=== PATIENT | male | born 1970 | race Caucasian/White ===

== ENCOUNTER 2023-02-17 13:28 | Outpatient (OUT) | payer OTHER, SELFPAY ==
--- NOTE | 2023-02-17 13:40 | ECG_ITS ---
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
== END 2023-02-17 13:29 ==
LOC: PST 13:29
DX: Z01.810 Encounter for preprocedural cardiovascular examination (principal); K40.90 Unilateral inguinal hernia, without obstruction or gangrene, not specified as recurrent
CPT/HCPCS: 93005

== ENCOUNTER 2023-04-19 09:40 | Outpatient (OUT) | payer OTHER, SELFPAY ==
--- NOTE | 2023-04-19 10:27 | PM.PRESUREVA ---
History of Present Illness History of Present Illness Chief complaint: right inguinal hernia Narrative: Patient presents for preadmission testing. The patient reports a right-sided hernia which is more painful when he eats or lifts weights. The patient was originally scheduled for this procedure in February of this year, but he had an abnormal EKG with a history of drug and alcohol abuse and shortness of breath. He states he is not currently using any drugs or alcohol and he has not had any shortness of breath. He has been cleared by cardioloogy. The patient has a documented history of low pulse ox, but denies any lung issues. Review of Systems ROS Narrative REVIEW OF SYSTEMS: Negative except as stated in HPI, ten or more systems reviewed. Constitutional: No fever , chills, weakness ENT: No sore throat or epistaxis Cardiovascular: No edema, chest pain, palpitations, or activity intolerance Respiratory: No shortness of breath, cough, or wheezing Musculoskeletal: No joint pain or swelling Genitourinary: No dysuria or hematuria Neurological: No numbness, tingling, weakness, or headache Psychiatric: No mood changes PFSH PFS Medical History (Updated 04/19/23 @ 10:25 by Cindy Chase NP) Family History (Updated 02/17/23 @ 16:35 by Radha Montemayor) Other Family history of cancer Heart disease Social History (Updated 04/19/23 @ 10:02 by Cindy Chase NP) Within the past year, how often did you have a drink containing alcohol: never Score interpretation: A score less than 4 is consistent with normal alcohol consumption. Smoking status: Never smoker Do you use any of these nicotine containing products: smokeless tobacco Non-prescribed substance use: denies use Highest level of school completed/degree received: high school graduate Meds Home Medications and Allergies Home Medications Medication Instructions Recorded Confirmed Type dapsone 100 mg tablet 100 mg PO BID 02/17/23 04/19/23 History Allergies Allergy/AdvReac Type Severity Reaction Status Date / Time gluten Allergy Severe Redness of Verified 04/19/23 10:01 Skin Exam Narrative Exam Narrative: Constitutional: Awake, alert, comfortable, well-appearing, nontoxic, interactive, vital signs as charted Head: Normocephalic, atraumatic Neck: Supple, normal appearance, normal range of motion, no meningeal signs, no lymphadenopathy Respiratory: No respiratory distress, breath sounds clear Cardiovascular: Regular rate and rhythm, strong and regular heart tones Abdomen: Tender right inguinal hernia, normal bowel sounds, soft Musculoskeletal: Normal gait, no swelling or edema Skin: No rashes or induration, no lesions, only visible skin inspected Neuro: No neurological deficits, normal sensation Psychiatric: Oriented ?3, Flat affect Assessment and Plan Assessment and Plan (1) Inguinal hernia: Plan Robotic repair of right inguinal hernia, possible bilateral scheduled with Dr. Simpson 04/27/2023.
== END 2023-04-19 09:41 | disposition home or self-care (01) ==
LOC: PST 09:42
PROVIDERS: Visit Provider Surgery
DX: Z01.818 Encounter for other preprocedural examination (principal); K40.90 Unilateral inguinal hernia, without obstruction or gangrene, not specified as recurrent
CPT/HCPCS: G0463

== ENCOUNTER 2023-04-27 06:18 | Day surgery (SDC) | payer OTHER, SELFPAY ==
[2023-04-19 10:25] VITALS: BP 115/78; PULSE 86; RESP 14; TEMP 36.2; O2SAT 91; BMI 25.8
[2023-04-27] VITALS (12 sets, daily range): BP systolic 120–140; BP diastolic 84–93; PULSE 50–74; RESP 10–19; TEMP 36.1–36.4; O2SAT 93–98
[2023-04-27 06:36] LABS: Amphetamine Screen Urine NEGATIVE (NEGATIVE); Barbiturates Screen Urine NEGATIVE (NEGATIVE); Benzodiazepines Screen Urine NEGATIVE (NEGATIVE); Buprenorphine Screen Urine NEGATIVE (NEGATIVE); Cannabinoid Screen Urine NEGATIVE (NEGATIVE); Cocaine Screen Urine NEGATIVE (NEGATIVE); Methadone Screen Urine NEGATIVE (NEGATIVE); Methamphetamines Screen Urine NEGATIVE (NEGATIVE); Opiate Screen Urine NEGATIVE (NEGATIVE); Oxycodone Screen Urine NEGATIVE (NEGATIVE); Phencyclidine Screen Urine NEGATIVE (NEGATIVE); Tricyclic Antidepressant Urine NEGATIVE (NEGATIVE)
--- NOTE | 2023-04-27 07:29 | PC.NURSE ---
2 IV attempts per Annette Herrera RN
[2023-04-27] MEDS: LACTATED RINGER'S SOLUTION 1,000 ML 50 ML IV (07:33)
[2023-04-27] MEDS: CEFAZOLIN SODIUM/DEXTROSE,ISO 2 GM/50 ML PIGGYBACK IV (08:03)
[2023-04-27] MEDS: BUPIVACAINE LIPOSOME/PF 266 MG/13.3 ML VIAL INJ (08:54)
[2023-04-27] MEDS: BUPIVACAINE HCL 0.25% PF 25 MG/10 ML VIAL INJ (08:54)
[2023-04-27] MEDS: 0.9 % SODIUM CHLORIDE 10 ML SYRINGE - SALINE FLUSH INJ (08:54)
[2023-04-27] MEDS: LACTATED RINGER'S SOLUTION 1,000 ML 1000 ML IV (09:11)
[2023-04-27] MEDS: ACETAMINOPHEN 1,000 MG/100 ML PREMIX 400 MG IV (10:22)
--- NOTE | 2023-04-27 10:38 | PM.GSPRC ---
Date of procedure: 04/27/23 Indications for Procedure: Patient is a 52-year-old male who was seen recently for an apparent right inguinal hernia. Following evaluation robotic repair of the right inguinal hernia was recommended. The risks benefits options and potential complications of the procedure were discussed in detail with the patient agreed to proceed and consent was signed. Pre-op diagnosis: Right Inguinal hernia Post-op diagnosis: same as pre-op Procedure: Robotic repair of right inguinal hernia with mesh Anesthesia: MADHAVA Surgeon: Osvaldo Simpson Procedure Summary: Patient was brought to the operating room and placed in the supine position. Gen. anesthesia was induced the patient was intubated. The abdomen is prepped in sterile fashion. Anesthesia performed a regional block. Abdomen is then again prepped and draped in sterile fashion. following local anesthesia a small incision was made in the left upper abdomen. with laparoscopic guidance an 8 mm robotic trocar was placed through this incision and advanced into the peritoneal cavity. The abdomen is then insufflated to 15 mmHg of carbon dioxide. The camera was introduced and safe port site entry confirmed. Two additional 8 mm robotic ports were placed one in the right lateral abdomen and one just superior to the umbilicus following local anesthesia under direct visualization. The patient was then placed in Trendelenburg position. At this time the da Drake XI was brought to the field. All ports were docked and instruments introduced in standard fashion. At this time I left the operating table and attended the surgeon's counseling center director. The right inguinal hernia was readily identified. The peritoneum was incised above the defect from the midline extending to the right lateral abdomen. The peritoneal flap was then created with electrocautery as well as blunt and sharp dissection. An indirect hernia sac was identified. With a combination of the traction as well as cautery and sharp dissection the sac was freed from the associated cord structures and completely reduced to the level of the peritoneum. Pradeep's ligament was then identified also. The pre-peritoneal space was then further expanded to allow mesh placement. A 15 cm x 9 cm progrip mesh was then introduced into the peritoneal cavity. This was placed in the preperitoneal space and unfolded and flattened with excellent coverage of the hernia defect as well as other potential sites for defects. Hemostasis was noted. The peritoneal defect was then closed with a running suture of 3-0V LOC. No other abnormalities were noted. The da Drake XI was then undocked and the abdomen desufflated with removal of the ports. Incisions were closed with subcuticular sutures of 4-0 Vicryl. Sponge needle and instrument counts were correct at the end of the procedure. The patient tolerated the procedure well and was transferred to the recovery area in stable condition. Estimated blood loss (mL): 3 Specimens: None Complications: No
--- NOTE | 2023-04-27 11:18 | PC.NURSE ---
Dressings x3 to abdomen intact with scant bloody drainage on left dressing and other 2 dressings dry; denies urge to void
--- NOTE | 2023-04-27 11:35 | PC.NURSE ---
Stood at bedside and voided clear yellow without difficulty
--- NOTE | 2023-04-27 11:44 | PC.NURSE ---
Scant bloody drainage on left dressing; other dressings dry x2
== END 2023-04-27 11:45 | disposition home or self-care (01) ==
PROVIDERS: Visit Provider Surgery
PROC: (CPT 49650; principal; 2023-04-27 08:30)
DX: K40.90 Unilateral inguinal hernia, without obstruction or gangrene, not specified as recurrent (principal); F10.11 Alcohol abuse, in remission; F19.91 Other psychoactive substance use, unspecified, in remission; I10 Essential (primary) hypertension; F17.220 Nicotine dependence, chewing tobacco, uncomplicated
CPT/HCPCS: 49650; 80307; C1781; J2704